=== PATIENT | female | born 1995 | race Caucasian/White ===

== ENCOUNTER 2017-09-01 06:43 | Emergency (ER) | payer OTHER ==
[~2017-09-01] VITALS: Ht 157.5 cm; Wt 75.5 kg
[~2017-09-01 06:43] MED LIST: AMOXICILLIN500 MG PO; CYCLOBENZAPR10 MG PO; TYLENOL 500MG TAB PO; ZOFRAN4 MG/TAB PO
[2017-09-01] MEDS ORDERED: PRE-NATAL PO (07:12)
[2017-09-01 07:28] LABS: URINE BILIRUBIN - DIPSTICK NEGATIVE (NEGATIVE); URINE BLOOD DIPSTICK TRACE-INTACT (NEGATIVE); URINE CLARITY CLEAR; URINE COLOR YELLOW; URINE GLUCOSE - DIPSTICK NEGATIVE (NEGATIVE); URINE KETONE NEGATIVE (NEGATIVE); URINE LEUK ESTERASE NEGATIVE (NEGATIVE); URINE NITRITE - DIPSTICK NEGATIVE (Negative); URINE PROTEIN - DIPSTICK NEGATIVE (NEG-TRACE); URINE UROBILINOGEN - DIPSTICK 0.2 E.U./dL (0.2)
[2017-09-01 07:33] LABS: IMMATURE GRANULOCYTES 2.8 % (0.0-1.0); MEAN CELL VOLUME 90.4 fL CALC (80.0-100.0); MEAN CORPUSCULAR HGB 29.9 pG CALC (26.0-32.0); MEAN CORPUSCULAR HGB CONC 33.1 g/L CALC (32.0-36.0); NEUT# 13.32 thou/uL (2.00-7.15); RED BLOOD COUNT 3.84 mill/uL (4.20-5.60)
[2017-09-01 07:39] LABS: HEMATOCRIT 34.7 % (37.0-47.0); HEMOGLOBIN 11.5 g/dl (12.0-16.0)
[2017-09-01 07:53] LABS: ALKALINE PHOSPHATASE 87 u/l (38-126); BILIRUBIN, TOTAL 0.5 mg/dL (0.0-1.4); BUN 10 mg/dL (7-17); BUN/CREATININE RATIO 16 (12-20 (CALC)); CARBON DIOXIDE 22 mmol/l (22-30); CHLORIDE 105 mmol/l (95-108); CREATININE 0.6 mg/dL (0.5-1.0); GFR > 60 ML/MIN (>=60 (CALC)); GFR FOR AFR.AMER. > 60 ML/MIN (>=60 (CALC)); SGOT/AST 22 u/l (14-36); SGPT/ALT 39 u/l (9-52); TOTAL PROTEIN 6.9 g/dL (6.3-8.2)
[2017-09-01 08:20] LABS: ALBUMIN 3.6 g/dL (3.2-5.0); ANION GAP 10 (6-22 (CALC)); SODIUM 133 mmol/l (137-146)
[2017-09-01] MEDS ORDERED: TYLENOL # 31 TAB PO (09:26)
[2017-09-01] MEDS ORDERED: AMOXICILLIN500 M2 PO (09:26)
[2017-09-01 09:40] VITALS: BP 125/69
== END 2017-09-01 09:40 | disposition home or self-care (01) | DRG 781 ==
LOC: ED 06:43
PROVIDERS: Emergency Medicine
DX: O26.832 Pregnancy related renal disease, second trimester (principal); N13.2 Hydronephrosis with renal and ureteral calculous obstruction; O99.512 Diseases of the respiratory system complicating pregnancy, second trimester; J45.909 Unspecified asthma, uncomplicated; K08.89 Other specified disorders of teeth and supporting structures; Z3A.00 Weeks of gestation of pregnancy not specified

== ENCOUNTER 2017-09-06 17:06 | Emergency (ER) | payer OTHER ==
[~2017-09-06] VITALS: Ht 157.5 cm; Wt 80.0 kg
[~2017-09-06 17:06] MED LIST changes: +AMOXICILLIN500 M2 PO; +PRE-NATAL PO; +TYLENOL # 31 TAB PO
[2017-09-06 18:06] LABS: HEMOGLOBIN 11.2 g/dl (12.0-16.0); IMMATURE GRANULOCYTES 2.5 % (0.0-1.0); MEAN CELL VOLUME 89.2 fL CALC (80.0-100.0); MEAN CORPUSCULAR HGB 30.3 pG CALC (26.0-32.0); MEAN CORPUSCULAR HGB CONC 33.9 g/L CALC (32.0-36.0); NEUT# 10.47 thou/uL (2.00-7.15); RED BLOOD COUNT 3.7 mill/uL (4.20-5.60)
[2017-09-06 18:07] LABS: URINE BILIRUBIN - DIPSTICK NEGATIVE (NEGATIVE); URINE BLOOD DIPSTICK NEGATIVE (NEGATIVE); URINE COLOR YELLOW; URINE GLUCOSE - DIPSTICK NEGATIVE (NEGATIVE); URINE KETONE NEGATIVE (NEGATIVE); URINE NITRITE - DIPSTICK NEGATIVE (Negative); URINE PH 6.5 (4.5-8.0); URINE PROTEIN - DIPSTICK NEGATIVE (NEG-TRACE); URINE SPECIFIC GRAVITY 1.015; URINE UROBILINOGEN - DIPSTICK 0.2 E.U./dL (0.2)
[2017-09-06 18:31] LABS: ALBUMIN 3.3 g/dL (3.2-5.0); ALKALINE PHOSPHATASE 127 u/l (38-126); ANION GAP 10 (6-22 (CALC)); BILIRUBIN, TOTAL 0.4 mg/dL (0.0-1.4); BUN 6 mg/dL (7-17); BUN/CREATININE RATIO 12 (12-20 (CALC)); CARBON DIOXIDE 25 mmol/l (22-30); CHLORIDE 103 mmol/l (95-108); CREATININE 0.5 mg/dL (0.5-1.0); GFR > 60 ML/MIN (>=60 (CALC)); GFR FOR AFR.AMER. > 60 ML/MIN (>=60 (CALC)); SGPT/ALT 89 u/l (9-52); SODIUM 134 mmol/l (137-146); TOTAL PROTEIN 6.4 g/dL (6.3-8.2)
[2017-09-06 18:51] LABS: SGOT/AST 74 u/l (14-36)
[2017-09-06 20:03] LABS: URINE CLARITY CLEAR; URINE LEUK ESTERASE SMALL (NEGATIVE)
[2017-09-06 20:17] LABS: URINE SQUAMOUS EPITHELIAL CELL MODERATE EPI/hpf (0-FEW)
[2017-09-06] MEDS ORDERED: AUGMENTIN875TAB PO (20:30)
[2017-09-06] MEDS ORDERED: ACETAMINOPHEN500 M1 PO (20:30)
[2017-09-06 20:47] VITALS: BP 102/55
== END 2017-09-06 20:59 | disposition home or self-care (01) | DRG 781 ==
LOC: ED 17:06
PROVIDERS: Emergency Medicine
DX: O99.512 Diseases of the respiratory system complicating pregnancy, second trimester (principal); J03.90 Acute tonsillitis, unspecified; M54.5 Low back pain; J45.909 Unspecified asthma, uncomplicated; Z3A.23 23 weeks gestation of pregnancy; Z87.442 Personal history of urinary calculi

== ENCOUNTER 2017-09-08 15:09 | Emergency (ER) | payer OTHER ==
[~2017-09-08] VITALS: Ht 157.5 cm; Wt 75.0 kg
[~2017-09-08 15:09] MED LIST changes: +ACETAMINOPHEN500 M1 PO; +AUGMENTIN875TAB PO
[2017-09-08 15:38] VITALS: BP 128/76
== END 2017-09-08 15:53 | disposition home or self-care (01) | DRG 607 ==
LOC: ED 15:09
DX: R21 Rash and other nonspecific skin eruption (principal); B97.10 Unspecified enterovirus as the cause of diseases classified elsewhere; J45.909 Unspecified asthma, uncomplicated; Z87.442 Personal history of urinary calculi

== ENCOUNTER 2017-09-18 19:44 | Emergency (ER) | payer OTHER ==
[~2017-09-18] VITALS: Ht 157.5 cm; Wt 75.2 kg
[2017-09-18] MEDS ORDERED: GENTAMICIN0.3 % OU (20:49)
[2017-09-18 20:55] VITALS: BP 145/90
== END 2017-09-18 20:55 | disposition home or self-care (01) | DRG 125 ==
LOC: ED 19:44
DX: H10.9 Unspecified conjunctivitis (principal); J45.909 Unspecified asthma, uncomplicated

== ENCOUNTER 2017-10-28 13:37 | Emergency (ER) | payer OTHER ==
[~2017-10-28] VITALS: Ht 157.5 cm; Wt 75.0 kg
[~2017-10-28 13:37] MED LIST changes: +GENTAMICIN0.3 % OU
[2017-10-28] MEDS ORDERED: ZOFRAN4 MG/TAB PO (15:18)
[2017-10-28 15:27] VITALS: BP 121/75
== END 2017-10-28 15:27 | disposition home or self-care (01) | DRG 781 ==
LOC: ED 13:37
DX: O99.619 Diseases of the digestive system complicating pregnancy, unspecified trimester (principal); R11.2 Nausea with vomiting, unspecified; O99.519 Diseases of the respiratory system complicating pregnancy, unspecified trimester; J45.909 Unspecified asthma, uncomplicated; Z3A.00 Weeks of gestation of pregnancy not specified

== ENCOUNTER 2018-09-30 07:03 | Observation (INO) | payer OTHER ==
[2018-09-30] VITALS (9 sets, daily range): BP systolic 111–132; BP diastolic 57–89
[~2018-09-30] VITALS: Ht 157.5 cm; Wt 76.0 kg
--- NOTE | 2018-09-30 07:03 | NUR ---
IMMEDIATELY TO TX ROOM WITH 10/10 RLQ PAIN,N/V SINCE 0500. PT STATES SHE HAS NEXPLANON IMPLANT FOR CONTROL.
[2018-09-30 07:27] LABS: IMMATURE GRANULOCYTES 0.5 % (0.0-5.0); MEAN CORPUSCULAR HGB 26.8 pG CALC (26.0-32.0); NEUT# 8.8 thou/uL (2.00-7.15); RED BLOOD COUNT 5.04 mill/uL (4.20-5.60); RED CELL DISTRI WIDTH 13.9 % (11.5-15.5)
--- NOTE | 2018-09-30 07:31 | NUR ---
PT RESTING MORE COMFORTABLY ABLE TO SPEAK IN FULL SENTENCES. RATES RLQ PAIN 5/10 AT THIS TIME. CONTINUOUS IV FLUID BOLUS INFUSING WITHOUT DIFFICULTY.
[2018-09-30] MEDS ORDERED: PHENTERMINE37.5 MG PO (07:37)
[2018-09-30 07:43] LABS: HEMATOCRIT 42.2 % (37.0-47.0); HEMOGLOBIN 13.5 g/dl (12.0-16.0); MEAN CELL VOLUME 83.7 fL CALC (80.0-100.0)
[2018-09-30 07:45] LABS: ALBUMIN 4.8 g/dL (3.2-5.0); ALKALINE PHOSPHATASE 87 u/l (38-126); AMYLASE 61 u/l (30-110); ANION GAP 15 (6-22 (CALC)); BILIRUBIN, TOTAL 1.2 mg/dL (0.0-1.4); BUN 13 mg/dL (7-17); BUN/CREATININE RATIO 17 (12-20 (CALC)); CARBON DIOXIDE 23 mmol/l (22-30); CHLORIDE 106 mmol/l (95-108); CREATININE 0.8 mg/dL (0.5-1.0); GFR > 60 ML/MIN (>=60 (CALC)); GFR FOR AFR.AMER. > 60 ML/MIN (>=60 (CALC)); LIPASE 120 u/l (23-300); SGOT/AST 27 u/l (14-36); SODIUM 140 mmol/l (137-146); TOTAL PROTEIN 8.3 g/dL (6.3-8.2)
--- NOTE | 2018-09-30 08:26 | NUR ---
ASSISTED PT TO STRETCHER AFTER RETURNING FROM CT AND GIVING URINE SAMPLE IN REST ROOM. STATES PAIN 5/10 BUT "I FEEL SO MUCH BETTER". DENIES NAUSEA AT THIS TIME. PT VERY TALKATIVE AND SMILING.
--- NOTE | 2018-09-30 08:35 | NUR ---
EDP AT BEDSIDE TO DISCUSS CLINICAL FINDINGS AND POSSIBLE ADMIT. PT AGEEABLE. STATES PAIN TO RLQ 10. MED ADMINISTERED ORDERED
--- NOTE | 2018-09-30 09:00 | NUR ---
LAB AT BEDSIDE TO DRAW BC
[2018-09-30 09:04] LABS: URINE BILIRUBIN - DIPSTICK NEGATIVE (NEGATIVE); URINE BLOOD DIPSTICK MODERATE (NEGATIVE); URINE COLOR YELLOW; URINE GLUCOSE - DIPSTICK NEGATIVE (NEGATIVE); URINE KETONE TRACE mg/dL (NEGATIVE); URINE LEUK ESTERASE NEGATIVE (NEGATIVE); URINE NITRITE - DIPSTICK NEGATIVE (Negative); URINE PROTEIN - DIPSTICK 30 mg/dL (NEG-TRACE); URINE UROBILINOGEN - DIPSTICK 0.2 E.U./dL (0.2)
[2018-09-30 09:05] LABS: URINE EPITHELIAL CELLS MODERATE EPI/hpf (0-FEW); URINE MUCUS FEW hpf (NONE-FEW)
--- NOTE | 2018-09-30 09:10 | NUR ---
INITATED IV ABT ORDERED, RESTING COMFORTABLY
--- NOTE | 2018-09-30 09:20 | NUR ---
REPORT GIVEN TO ALMITA IN MED SURG
--- NOTE | 2018-09-30 09:50 | NUR ---
PT TRANSPORTED TO [facility] VIA IN STABLE CONDITION WITH ALL BELONGINGS. PT EXPRESSESS APPRECIATTION OF CARE
--- NOTE | 2018-09-30 09:52 | NUR ---
PT ARRIVED TO MED/SURG ROOM 274 IN STABLE CONDITION ACCOMPANIED BY ESTRADA TONG VIA WHEELCHAIR;PT AMBULATED TO STANDING SCALE AND BEDSIDE WITH A STEADY GAIT, VS AND WT OBTAINED BY MAL LIGHT;PT REPORTS ABDOMINAL PAIN STARTING AT 0500;;ASSESSMENT COMPLETED;RESPIRATIONS EVEN AND UNLABORED ON RA,CLEAR LUNG SOUNDS;ABDOMEN SOFT ON PALPATION AND ACTIVE IN ALL 4 QUADRANTS,LAST BM 09/30/18;TENDERNESS NOTED TO RLQ;PT REPORTS ABDOMINAL PAIN TO BE 7/10 ON THE PAIN SCALE AND REQUESTS PAIN MEDICATION, PT TO BE MEDICATED PER EMAR;STRONG PEDAL PULSES;SKIN INTACT;#20G TO RAC FLUSHED AND PATENT,NS STARTED @ 100ML/HR PER ORDER;NPO DIET REINFORCED AND PT VERBALIZES UNDERSTANDING;PT DENIES ANY ADDITIONAL NEEDS AT THIS TIME AND IS ENCOURAGED TO CALL FOR ASSISTANCE IF NEEDED;FALL PRECAUTIONS IN PLACE WITH CALL LIGHT IN REACH;WILL CONTINUE TO MONITOR
--- NOTE | 2018-09-30 09:58 | NUR ---
ANESTHESIA AT BEDSIDE
--- NOTE | 2018-09-30 10:30 | NUR ---
PT MEDICATED WITH DILAUDID 1MG IVP FOR ABDOMINAL PAIN RATING 7/10 ON THE PAIN SCALE;PT ALSO VOIDED 200CC OF CLEAR/YELLOW URINE,URINE STRAINED;PT DENIES ANY ADDITIONAL NEEDS;WILL CONTINUE TO MONITOR FOR EFFECTIVENESS
--- NOTE | 2018-09-30 10:55 | NUR ---
CANELO, OR STAFF MEMBER AT BEDSIDE OBTAINING CONSENT.
--- NOTE | 2018-09-30 11:25 | NUR ---
PT RESTING IN SEMI FOWLERS POSITION;RESPIRATIONS EVEN AND UNLABORED ON RA;PT REPORTS THAT ABDOMINAL PAIN HAS DECREASED TO 3/10 ON THE PAIN SCALE;IV FLUIDS INFUSING TO RAC WITH EASE;NPO DIET REINFORCED;PT INSTRUCTED TO CALL FOR ASSISTANCE IF NEEDED;CALL LIGHT IN REACH;WILL CONTINUE TO MONITOR
[2018-09-30] MEDS ORDERED: MOTRIN800 MG PO (13:21)
[2018-09-30] MEDS ORDERED: ZOFRAN4 MG/TAB PO (13:33)
[2018-09-30] MEDS ORDERED: SUMATRIPTAN25 MG (13:39)
[2018-09-30] MEDS ORDERED: SUMATRIPTAN25 MG PO ×2 (13:49→13:50)
--- NOTE | 2018-09-30 15:30 | NUR ---
PT RESTING IN SEMI FOWLERS POSITION;RESPIRATIONS EVEN AND UNLABORED ON RA;PT REPORTS ABDOMINAL PAIN RATING 6/10 ON THE PAIN SCALE AND REQUESTS PAIN MEDICATION, PT WAS MEDICATED WITH PRN DILAUDID 1MG IVP PER ORDER;IV FLUIDS CONTINUE TO INFUSE TO RAC WITH EASE;NPO DIET IN PLACE;PT DENIES ANY ADDITIONAL NEEDS OR CONCERNS;INSTRUCTED TO CALL FOR ASSISTANCE IF NEEDED;CALL LIGHT IN REACH;WILL CONTINUE TO MONITOR
--- NOTE | 2018-09-30 16:41 | NUR ---
PT TRANSPORTED TO OR VIA STRETCHER IN STABLE CONDITION ACCOMPANIED BY ESTRADA LEMOS.
--- NOTE | 2018-09-30 18:48 | NUR ---
PT ARRIVED BACK TO MED/SURG ROOM 274 IN STABLE CONDITION VIA STRETCHER ACCOMPANIED BY ESTRADA LEMOS;PT AMBULATED AND REPOSITIONED INTO BED;PT DENIES ANY CURRENT PAIN OR NEEDS;IV FLUIDS INFUSING WELL TO RAC;VS TO BE OBTAINED;FALL PRECAUTIONS NOTED WITH BED IN THE LOWEST POSITION AND CALL LIGHT IN REACH;WILL CONTINUE TO MONITOR
--- NOTE | 2018-09-30 19:37 | NUR ---
PT MEDICATED FOR PAIN REPORTED 5/10 IN LOWER RIGHT ABD. PT LOC, FAMILY X1 AT BEDSIDE ASKING QUESTIONS REGARDING SITUATION, PT CUT HER OFF VERBALLY/WILL ONLY PROVIDE INFORMATION TO PT W/OUT FURTHER PERMISSION. PT ASSESSED, ABD SOFT TENDER TO TOUCH IN LOWER RIGHT QUADRANT, HYPO BOWEL SOUNDS THROUGHOUT. LUNG SOUNDS ARE CLEAR, HR REG. PT IS ASKING IF SHE CAN EAT/POC AND DIET DISCUSSED W/PT, ENCOURAGED HER TO ONLY EAT ICE CIPS AT FIRST AND THEN PROGRESS TO CLEAR LIQUIDS TO SEE HOW SHE TOLERATES THESE. PT INSTRUCTED TO CALL PRIOR TO AMBULATING. CALL LIGHT AT BEDSIDE.
--- NOTE | 2018-09-30 22:10 | NUR ---
PT ASKING FOR SNACKS/PROVIDED, DENIES NAUSEA AFTER DRINKING SPRITE AND WATER. MOM AT BEDSIDE/ROLL-AWAY BED PROVIDED. WARMPACKS PROVIDED TO PT FOR COMFORT. DENIES ANY OTHER NEEDS AT THIS TIME
--- NOTE | 2018-10-01 00:05 | NUR ---
IV SOUNDED/OCCLUDED/DISLODGED. NEW IV SITE ACCESSED, PT TOLERATED WELL.
[2018-10-01 00:24] VITALS: BP 99/60
--- NOTE | 2018-10-01 01:55 | NUR ---
PT SLEEPING AT THIS TIME. NO S/O DISTRESS NOTED. CALL LIGHT AT SIDE. MOTHER ASLEEP AT SIDE.
--- NOTE | 2018-10-01 04:22 | NUR ---
IVF REPLENISHED AND PT ASSISTED TO RESTROOM. NO S/O DISTRESS AT THIS TIME. PT MOTHER ASLEEP AT BEDSIDE. CALL LIGHT AT SIDE.
[2018-10-01 05:08] VITALS: BP 103/49
[2018-10-01 05:09] LABS: MEAN CELL VOLUME 85.4 fL CALC (80.0-100.0); MEAN CORPUSCULAR HGB 27.2 pG CALC (26.0-32.0); MEAN CORPUSCULAR HGB CONC 31.9 g/L CALC (32.0-36.0); RED BLOOD COUNT 3.97 mill/uL (4.20-5.60); RED CELL DISTRI WIDTH 13.5 % (11.5-15.5)
[2018-10-01 05:18] LABS: HEMATOCRIT 33.9 % (37.0-47.0); HEMOGLOBIN 10.8 g/dl (12.0-16.0)
[2018-10-01 05:25] VITALS: BP 108/62
[2018-10-01 05:26] LABS: ANION GAP 11 (6-22 (CALC)); BUN 10 mg/dL (7-17); BUN/CREATININE RATIO 15 (12-20 (CALC)); CARBON DIOXIDE 24 mmol/l (22-30); CHLORIDE 108 mmol/l (95-108); CREATININE 0.7 mg/dL (0.5-1.0); GFR > 60 ML/MIN (>=60 (CALC)); GFR FOR AFR.AMER. > 60 ML/MIN (>=60 (CALC)); POTASSIUM 4.3 mmol/l (3.5-5.1); SODIUM 139 mmol/l (137-146)
--- NOTE | 2018-10-01 05:29 | NUR ---
PT MEDICATED FOR PAIN 5/10 ON PAIN SCALE. PT DENIES ANY OTHER NEEDS AT THIS TIME.
--- NOTE | 2018-10-01 07:10 | NUR ---
PT REPORT RECIEVED FROM ESTRADA FITZPATRICK. PT RESTING. NO S/S OF DISTRESS. CALL LIGHT IN REACH. WILL CONTINUE TO MONITOR.
[2018-10-01 07:43] VITALS: BP 115/55
--- NOTE | 2018-10-01 07:54 | NUR ---
PT A/O X3. SPEECH IS CLEAR. RESP EVEN AND UNLABORED. LUNG SOUNDS CLEAR. BOWEL SOUNDS ACTIVE X4. PT C/O RLQ TENDERNESS. STRONG RADIAL AND PEDAL PULSES. #22 LAC NS @100. SITE APPEARS HEALTHY. SKIN INTACT. PT DENIES ANY PAIN OR NEEDS. POC DISCUSSED. SAFETY PRECAUTIONS IN PLACE. CALL LIGHT IN REACH. WILL CONTINUE TO MONITOR.
--- NOTE | 2018-10-01 09:31 | NUR ---
D/C INSTRUCTIONS DISCUSSED W/ PT. PT STATES UNDERSTANDING. IV REMOVED. CATHETER INTACT. PT DRESSED; WAITING FOR FAMILY MEMBER.
== END 2018-10-01 09:33 | disposition home or self-care (01) | DRG 661 ==
LOC: ED 07:03 → ED-I 08:33 → ED 08:47 → MS2 08:48
PROVIDERS: Family Medicine; ADMIT Internal Medicine; ATTEND Internal Medicine
PROC: 0TC68ZZ Extirpation of Matter from Right Ureter, Via Natural or Artificial Opening Endoscopic (ICD-10-PCS; principal; 2018-09-30)
PROC: 0T768DZ Dilation of Right Ureter with Intraluminal Device, Via Natural or Artificial Opening Endoscopic (ICD-10-PCS; 2018-09-30)
PROC: BT1D1ZZ Fluoroscopy of Right Kidney, Ureter and Bladder using Low Osmolar Contrast (ICD-10-PCS; 2018-09-30)
DX: N13.2 Hydronephrosis with renal and ureteral calculous obstruction (principal); N83.201 Unspecified ovarian cyst, right side; Z87.442 Personal history of urinary calculi
CPT/HCPCS: G0378; Q9967

== ENCOUNTER 2019-04-14 | Day surgery (SDC) | payer SELFPAY ==
[~2019-04-14] MED LIST changes: +MOTRIN800 MG PO; +PHENTERMINE37.5 MG PO; +SUMATRIPTAN25 MG; +SUMATRIPTAN25 MG PO
[2019-04-14 05:50] LABS: URINE BILIRUBIN - DIPSTICK NEGATIVE (NEGATIVE); URINE BLOOD DIPSTICK NEGATIVE (NEGATIVE); URINE COLOR YELLOW; URINE GLUCOSE - DIPSTICK NEGATIVE (NEGATIVE); URINE KETONE NEGATIVE (NEGATIVE); URINE LEUK ESTERASE NEGATIVE (NEGATIVE); URINE NITRITE - DIPSTICK NEGATIVE (Negative); URINE PROTEIN - DIPSTICK NEGATIVE (NEG-TRACE); URINE SPECIFIC GRAVITY 1.015; URINE UROBILINOGEN - DIPSTICK 0.2 E.U./dL (0.2)
[2019-04-14 05:53] LABS: HEMATOCRIT 41.8 % (37.0-47.0); HEMOGLOBIN 13.7 g/dl (12.0-16.0); IMMATURE GRANULOCYTES 1.1 % (0.0-5.0); MEAN CELL VOLUME 84.1 fL CALC (80.0-100.0); MEAN CORPUSCULAR HGB 27.6 pG CALC (26.0-32.0); MEAN CORPUSCULAR HGB CONC 32.8 g/L CALC (32.0-36.0); NEUT# 21.02 thou/uL (2.00-7.15); RED BLOOD COUNT 4.97 mill/uL (4.20-5.60); RED CELL DISTRI WIDTH 13.1 % (11.5-15.5)
[2019-04-14 05:55] LABS: BARBITURATES NEGATIVE (NEGATIVE); COCAINE NEGATIVE (NEGATIVE); METHADONE NEGATIVE (NEGATIVE); OXCYCODONE POSITIVE (NEGATIVE); TETRAHYDROCANNABIONOL NEGATIVE (NEGATIVE); TRICYLIC ANTIDEPRESSANTS NEGATIVE (NEGATIVE)
[2019-04-14 06:06] LABS: ALBUMIN 4.6 g/dL (3.2-5.0); ALKALINE PHOSPHATASE 83 u/l (38-126); AMYLASE 58 u/l (30-110); ANION GAP 17 (6-22 (CALC)); BILIRUBIN, TOTAL 1.4 mg/dL (0.0-1.4); BUN 12 mg/dL (7-17); BUN/CREATININE RATIO 23 (12-20 (CALC)); CARBON DIOXIDE 21 mmol/l (22-30); CHLORIDE 102 mmol/l (95-108); CREATININE 0.5 mg/dL (0.5-1.0); GFR > 60 ML/MIN (>=60 (CALC)); GFR FOR AFR.AMER. > 60 ML/MIN (>=60 (CALC)); LIPASE 109 u/l (23-300); POTASSIUM 4.6 mmol/l (3.5-5.1); SGOT/AST 25 u/l (14-36); SODIUM 135 mmol/l (137-146); TOTAL PROTEIN 8.3 g/dL (6.3-8.2)
[2019-04-14] MEDS ORDERED: PERCOCET 5/325M1 TAB PO (16:32)
== END 2019-04-14 17:26 | disposition home or self-care (01) | DRG 343 ==
PROVIDERS: Family Medicine
PROC: 0DTJ4ZZ Resection of Appendix, Percutaneous Endoscopic Approach (ICD-10-PCS; principal; 2019-04-14)
DX: K35.80 Unspecified acute appendicitis (principal); Z88.0 Allergy status to penicillin
CPT/HCPCS: J0131; J2710; Q9967

== ENCOUNTER 2019-10-02 17:33 | Emergency (ER) | payer OTHER ==
[~2019-10-02] VITALS: Ht 157.5 cm; Wt 90.0 kg
[~2019-10-02 17:33] MED LIST changes: +PERCOCET 5/325M1 TAB PO
[2019-10-02 19:25] VITALS: BP 148/76
--- NOTE | 2019-10-06 11:50 | NUR ---
Patient called for Covid resu;ts. Negative results given.
== END 2019-10-02 19:25 | disposition home or self-care (01) ==
LOC: ED 17:33
DX: B34.9 Viral infection, unspecified (principal); Z20.828 Contact with and (suspected) exposure to other viral communicable diseases

== ENCOUNTER 2020-10-04 11:40 | Observation (INO) | payer OTHER ==
[~2020-10-04] VITALS: Ht 157.5 cm; Wt 77.0 kg
--- NOTE | 2020-10-04 11:55 | NUR ---
PT TO ROOM FOR TRIAGE WITH STEADY GAIT.
[2020-10-04 13:03] LABS: URINE BILIRUBIN - DIPSTICK NEGATIVE (NEGATIVE); URINE BLOOD DIPSTICK LARGE (NEGATIVE); URINE COLOR YELLOW; URINE GLUCOSE - DIPSTICK NEGATIVE (NEGATIVE); URINE KETONE TRACE mg/dL (NEGATIVE); URINE LEUK ESTERASE NEGATIVE (NEGATIVE); URINE PROTEIN - DIPSTICK NEGATIVE (NEG-TRACE); URINE UROBILINOGEN - DIPSTICK 0.2 E.U./dL (0.2)
[2020-10-04 13:06] LABS: URINE EPITHELIAL CELLS FEW EPI/hpf (0-FEW); URINE NITRITE - DIPSTICK NEGATIVE (Negative); URINE RBC 25-50 RBC/hpf (0-5)
[2020-10-04 13:24] LABS: HEMATOCRIT 42.2 % (37.0-47.0); HEMOGLOBIN 13.7 g/dl (12.0-16.0); IMMATURE GRANULOCYTES 0.2 % (0.0-5.0); MEAN CELL VOLUME 88.8 fL CALC (80.0-100.0); MEAN CORPUSCULAR HGB 28.8 pG CALC (26.0-32.0); MEAN CORPUSCULAR HGB CONC 32.5 g/dL CAL (32.0-36.0); NEUT# 8.61 thou/uL (2.00-7.15); RED BLOOD COUNT 4.75 mill/uL (4.20-5.60); RED CELL DISTRI WIDTH 12.3 % (11.5-15.5)
[2020-10-04 13:28] LABS: ALBUMIN 4.5 g/dL (3.2-5.0); ALKALINE PHOSPHATASE 64 u/l (38-126); ANION GAP 15 (6-22 (CALC)); BILIRUBIN, TOTAL 1.1 mg/dL (0.0-1.4); BUN 11 mg/dL (7-17); BUN/CREATININE RATIO 19 (12-20 (CALC)); CARBON DIOXIDE 24 mmol/l (22-30); CHLORIDE 104 mmol/l (95-108); CREATININE 0.6 mg/dL (0.5-1.0); GFR > 60 ML/MIN (>=60 (CALC)); GFR FOR AFR.AMER. > 60 ML/MIN (>=60 (CALC)); LIPASE 104 u/l (23-300); POTASSIUM 4.3 mmol/l (3.5-5.1); SGOT/AST 47 u/l (14-36); SODIUM 138 mmol/l (137-146); TOTAL PROTEIN 8.5 g/dL (6.3-8.2)
--- NOTE | 2020-10-04 13:50 | NUR ---
PATIENT OFFERED SUKH-PADS PER REQUEST
[2020-10-04] MEDS ORDERED: VALIUM2 MG PO (15:04)
[2020-10-04] MEDS ORDERED: HYDROCO/APAP1 TA9 PO (15:05)
--- NOTE | 2020-10-04 16:44 | NUR ---
RECEIVED REPORT FROM ED.
--- NOTE | 2020-10-04 16:45 | NUR ---
PT ALERT AND ORIENTED. S1 AND S2 NOTED. LUNG SOUNDS CLEAR. BOWEL SOUNDS ACTIVE IN ALL 4 QUADRANTS. PEDAL PULSES EQUALLY BILATERALLY STRONG. IV PATENT AND HEALTHY. NO DISTRESS NOTED. PT'S CALL LIGHT WITHIN REACH.
[2020-10-04 16:54] VITALS: BP 113/66
[2020-10-04 19:27] VITALS: BP 131/68
--- NOTE | 2020-10-04 20:15 | NUR ---
ASSESSMENT COMPLETE ON PATIENT. ALERT AND ORIENTED. PLEASANT AND ABLE TO MAKE NEEDS KNOWN. ASKED IF HAVING ANY PAIN AND PATIENT DENIED. BED IN LOWEST POSITION WITH CALL HALL IN REACH.
--- NOTE | 2020-10-05 03:12 | NUR ---
AMARA BHAGAT IV. PATIENT DENIES ANY PAIN AT THIS TIME. CALL LIGHT WITHIN REACH. BED REMAINS IN LOWEST POSITION.
[2020-10-05 04:00] VITALS: BP 110/63
--- NOTE | 2020-10-05 05:10 | NUR ---
PATIENT RESTING IN BED. REMAINS NPO. NO COMPLAINTS VOICED AT THIS TIME.
--- NOTE | 2020-10-05 07:05 | NUR ---
PT SLEEP UPON ENTERING ROOM. VITALS AND ASSESSMENT COMPLETED. T IS ALERT AND ORIENTED. S1 AND S2 HEARD. LUNG SOUNDS CLEAR. BOWEL SOUNDS ACTIVE IN ALL 4 QUADRANTS. PEDAL PULSES STRONG BILATERALLY. NO DISTRESS NOTED. PT GETTING READY TO GO DOWN TO THE OR FOR PROCEDURE. CONSENT OBTAINED. CALL LIGHT WITHIN REACH.
[2020-10-05 07:17] VITALS: BP 107/58
--- NOTE | 2020-10-05 07:17 | NUR ---
PT SLEEP UPON ENTERING ROOM. VITALS AND ASSESSMENT DONE. S1 AND S2 NOTED. LUNG SOUNDS CLEAR. BOWELS SOUNDS ACTIVE IN ALL 4 QUADRANTS. PEDAL PULSES STRONG BILATERALLY. IV PATENT AND HEALTHY. PT GETTING READY TO BE TAKEN TO THE OR FOR PROCEDURE. NPO SINCE MIDNIGHT. NO DISTRESS NOTED. CALL LIGHT WITHIN REACH.
--- NOTE | 2020-10-05 07:28 | NUR ---
PT TRANSPORTED TO OR BY OR NURSE IN STABLE CONDITION. NO DISTRESS NOTED.
--- NOTE | 2020-10-05 10:45 | NUR ---
PT RETURNED FROM OR ACCOMPINIED BY Tim ROY RN. PT IN STABLE CONDITION. RECEIVED REPORT BY JO. Tim DORADO.
[2020-10-05 11:00] VITALS: BP 118/66; BP 129/100
--- NOTE | 2020-10-05 12:00 | NUR ---
PT IN BE BED. NO DISTRESS NOTED CALL LIGHT WITHIN REACH.
--- NOTE | 2020-10-05 13:46 | NUR ---
Discharge instructions given. Patient verbalizes understanding of same. Discharged in stable condition via Wheelchair to Home with staff. All belongings sent with pt.
== END 2020-10-05 13:46 | disposition home or self-care (01) | DRG 419 ==
LOC: ED 11:40 → ED-I 12:35 → ED 14:14 → MS2 14:15
PROVIDERS: Family Medicine; ADMIT Surgery; ATTEND Surgery
PROC: 0FT44ZZ Resection of Gallbladder, Percutaneous Endoscopic Approach (ICD-10-PCS; principal; 2020-10-05)
DX: K80.12 Calculus of gallbladder with acute and chronic cholecystitis without obstruction (principal); J45.909 Unspecified asthma, uncomplicated; Z87.442 Personal history of urinary calculi; Z20.822 Contact with and (suspected) exposure to COVID-19
CPT/HCPCS: G0378; J2710; Q9967

== ENCOUNTER 2022-01-02 06:56 | Day surgery (SDC) | payer OTHER ==
[~2022-01-02] VITALS: Ht 157.5 cm; Wt 74.8 kg
[~2022-01-02 06:56] MED LIST changes: +HYDROCO/APAP1 TA9 PO; +LISINOPRIL; +VALIUM2 MG PO
[2022-01-02 08:47] VITALS: BP 121/73
== END 2022-01-02 09:00 | disposition home or self-care (01) | DRG 392 ==
LOC: ENDO 06:56 → ORM 07:55 → ENDO 07:55 → ORM 08:00 → ENDO 09:00
PROVIDERS: ATTEND Surgery
PROC: 0DB78ZX Excision of Stomach, Pylorus, Via Natural or Artificial Opening Endoscopic, Diagnostic (ICD-10-PCS; principal; 2022-01-02)
PROC: 0DJD8ZZ Inspection of Lower Intestinal Tract, Via Natural or Artificial Opening Endoscopic (ICD-10-PCS; 2022-01-02)
DX: K29.50 Unspecified chronic gastritis without bleeding (principal); K29.80 Duodenitis without bleeding; K64.8 Other hemorrhoids; I10 Essential (primary) hypertension; Z90.49 Acquired absence of other specified parts of digestive tract

== ENCOUNTER 2022-07-03 20:35 | Emergency (ER) | payer OTHER ==
[~2022-07-03 20:35] MED LIST changes: +CARAFATE PO; +OMEPRAZOLE20 MG PO
[2022-07-03 21:34] LABS: BASO% 0.2 % (0-3); HEMOGLOBIN 12.6 g/dl (12.0-16.0); IMMATURE GRANULOCYTES 0.4 % (0.0-5.0); LYMPH% 16.7 % (15-41); MEAN CELL VOLUME 88.1 fL CALC (80.0-100.0); MEAN CORPUSCULAR HGB 29.4 pG CALC (26.0-32.0); MEAN CORPUSCULAR HGB CONC 33.3 g/dL CAL (32.0-36.0); MONO% 5.5 % (2-13); NEUT# 12.02 thou/uL (2.00-7.15); NEUT% 76.2 % (42-76); RED BLOOD COUNT 4.29 mill/uL (4.20-5.60); RED CELL DISTRI WIDTH 12.5 % (11.5-15.5)
[2022-07-03 21:35] LABS: HEMATOCRIT 37.8 % (37.0-47.0)
[2022-07-03 21:45] LABS: ALBUMIN 4.1 g/dL (3.2-5.0); ALKALINE PHOSPHATASE 86 u/l (38-126); ANION GAP 12 (6-22 (CALC)); BUN 12 mg/dL (7-17); BUN/CREATININE RATIO 21 (12-20 (CALC)); CARBON DIOXIDE 23 mmol/l (22-30); CHLORIDE 105 mmol/l (95-108); CREATININE 0.6 mg/dL (0.5-1.0); GFR FOR AFR.AMER. > 60 ML/MIN (>=60 (CALC)); GFR OTHER RACES > 60 ML/MIN (>=60 (CALC)); POTASSIUM 3.7 mmol/l (3.5-5.1); SGOT/AST 29 u/l (14-36); SODIUM 136 mmol/l (137-146); TOTAL PROTEIN 7.5 g/dL (6.3-8.2)
[2022-07-03 22:15] LABS: BILIRUBIN, TOTAL 0.4 mg/dL (0.02-1.3)
[2022-07-03 22:29] LABS: BETA-HCG, QUANT(RESULT NUMBER) 118550 mIU/mL
[2022-07-04 01:03] VITALS: BP 122/72
== END 2022-07-04 01:11 | disposition home or self-care (01) | DRG 833 ==
LOC: ED 20:35
PROVIDERS: Family Medicine
DX: O20.9 Hemorrhage in early pregnancy, unspecified (principal); Z3A.12 12 weeks gestation of pregnancy

== ENCOUNTER 2022-09-22 16:01 | Emergency (ER) | payer OTHER ==
[~2022-09-22] VITALS: Ht 157.5 cm; Wt 82.5 kg
[2022-09-22] VITALS (11 sets, daily range): BP systolic 108–146; BP diastolic 64–81
[2022-09-22] MEDS ORDERED: BAYER ASPIRIN E81 MG PO (16:46)
== END 2022-09-22 19:32 | disposition home or self-care (01) | DRG 833 ==
LOC: ED 16:01
DX: O9A.212 Injury, poisoning and certain other consequences of external causes complicating pregnancy, second trimester (principal); S16.1XXA Strain of muscle, fascia and tendon at neck level, initial encounter; V49.40XA Driver injured in collision with unspecified motor vehicles in traffic accident, initial encounter; Z3A.25 25 weeks gestation of pregnancy

== ENCOUNTER 2022-11-25 19:30 | Emergency (ER) | payer OTHER ==
[~2022-11-25] VITALS: Ht 157.5 cm; Wt 87.0 kg
[~2022-11-25 19:30] MED LIST changes: +BAYER ASPIRIN E81 MG PO
[2022-11-25 20:12] LABS: BASO% 0.2 % (0-3); EOS% 1.6 % (0-8); HEMATOCRIT 35.9 % (37.0-47.0); HEMOGLOBIN 11.7 g/dl (12.0-16.0); IMMATURE GRANULOCYTES 4.6 % (0.0-5.0); LYMPH% 13.4 % (15-41); MEAN CELL VOLUME 88.4 fL CALC (80.0-100.0); MEAN CORPUSCULAR HGB 28.8 pG CALC (26.0-32.0); MEAN CORPUSCULAR HGB CONC 32.6 g/dL CAL (32.0-36.0); MONO% 7.1 % (2-13); NEUT# 13.34 thou/uL (2.00-7.15); NEUT% 73.1 % (42-76); RED BLOOD COUNT 4.06 mill/uL (4.20-5.60); RED CELL DISTRI WIDTH 13.1 % (11.5-15.5)
[2022-11-25 20:16] LABS: URINE BILIRUBIN - DIPSTICK Negative (NEGATIVE); URINE BLOOD DIPSTICK Trace-intact (NEGATIVE); URINE GLUCOSE - DIPSTICK Negative (NEGATIVE); URINE KETONE Trace mg/dL (NEGATIVE); URINE LEUK ESTERASE Negative (NEGATIVE); URINE NITRITE - DIPSTICK Negative (Negative); URINE PROTEIN - DIPSTICK Negative (NEG-TRACE); URINE UROBILINOGEN - DIPSTICK 0.2 E.U./dL (0.2)
[2022-11-25 20:19] LABS: URINE COLOR Yellow
[2022-11-25 20:31] LABS: ALBUMIN 3.5 g/dL (3.2-5.0); ALKALINE PHOSPHATASE 151 u/l (38-126); ANION GAP 10 (6-22 (CALC)); BILIRUBIN, TOTAL 0.5 mg/dL (0.02-1.3); BUN 8 mg/dL (7-17); BUN/CREATININE RATIO 13 (12-20 (CALC)); CARBON DIOXIDE 22 mmol/l (22-30); CHLORIDE 108 mmol/l (95-108); CREATININE 0.6 mg/dL (0.5-1.0); GFR FOR AFR.AMER. > 60 ML/MIN (>=60 (CALC)); GFR OTHER RACES > 60 ML/MIN (>=60 (CALC)); POTASSIUM 3.9 mmol/l (3.5-5.1); SGOT/AST 26 u/l (14-36); SODIUM 136 mmol/l (137-146); TOTAL PROTEIN 6.8 g/dL (6.3-8.2)
[2022-11-25] MEDS ORDERED: TAM75CAP PO (21:31)
[2022-11-25 23:11] VITALS: BP 140/84
== END 2022-11-26 01:18 | disposition short-term general hospital (02) | DRG 832 ==
LOC: ED 19:30
PROVIDERS: Emergency Medicine
DX: O99.891 Other specified diseases and conditions complicating pregnancy (principal); N13.2 Hydronephrosis with renal and ureteral calculous obstruction; O99.513 Diseases of the respiratory system complicating pregnancy, third trimester; J11.1 Influenza due to unidentified influenza virus with other respiratory manifestations; O16.3 Unspecified maternal hypertension, third trimester; Z87.442 Personal history of urinary calculi; Z3A.33 33 weeks gestation of pregnancy; Z20.822 Contact with and (suspected) exposure to COVID-19